=== PATIENT | male | born 1985 | race American Indian/Alaskan Native ===

== ENCOUNTER 2018-04-15 11:09 | Emergency (ER) | payer BC ==
[2018-04-15 11:17] VITALS: BP 125/87
[2018-04-15] MEDS ORDERED: TYLENOL PO ONE (13:40)
--- NOTE | 2018-04-15 14:02 | Emergency Department Report ---
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 The patient reports left leg pain for the past one week, associated with swelling. He also reports episodic chest pain and shortness of breath over the wet last week, none today, last episode greater than 24 hours ago. The patient denies fever, neck pain, parasthesias, cough, hemoptysis, palpitations, dizziness, syncope. Patient also denies cocaine or other stimulant use, history of DVT or PE, recent immobilization, or history of cancer. - Exam Vital Signs: Vital Signs 04/15/18 11:12 Temperature 98.8 F Pulse Rate 90 Respiratory 16 Rate Blood Pressure 125/87 O2 Sat by Pulse 98 Oximetry MSE screening note: Focused history and physical exam performed. Due to findings the following was ordered: ED Disposition for MSE Condition: Stable Referrals: PRIMARY CARE, [Primary Care Provider] - 3-5 Days
== END 2018-04-15 17:09 | disposition left against medical advice (07) ==
LOC: ED 11:09
DX: R06.02 Shortness of breath (principal); Z53.21 Procedure and treatment not carried out due to patient leaving prior to being seen by health care provider
CPT/HCPCS: 71046; 93005; 93010

== ENCOUNTER 2018-12-01 15:34 | Emergency (ER) | payer SELFPAY ==
[2018-12-01 15:39] VITALS: BP 143/93
[2018-12-01] MEDS ORDERED: ZITHROMAX PO ONE (16:23)
[2018-12-01] MEDS ORDERED: ZOFRAN ODT PO ONE (16:23)
[2018-12-01] MEDS ORDERED: XYLOCAINE 1% MPF 5 mL INFILTRATI ONE (16:23)
[2018-12-01] MEDS ORDERED: ROCEPHIN IM ONE (16:23)
--- NOTE | 2018-12-01 16:28 | Emergency Department Report ---
ED General Adult HPI - General Chief complaint: Upper Respiratory Infection Stated complaint: COUGHING Time Seen by Provider: 12/01/18 16:10 Source: patient Mode of arrival: Ambulatory Limitations: No Limitations - History of Present Illness Initial comments: Ms. Brice is a very pleasant 32-year-old male with history of HIV who presents with cough for the past 3 weeks. Cold symptoms have improved. However his primary care physician in [facility] is concerned about a bacterial infection. He has a undetectable viral load. He also was informed that he has chlamydia infection. He currently requests treatment for infection. -: Gradual, week(s) (3) Location: chest Improves with: none Worsens with: none - Related Data Previous Rx's Medication Instructions Recorded Last Taken Type cephALEXin [Keflex] 500 mg PO Q6HR 5 Days #20 capsule 12/01/18 Unknown Rx Allergies Allergy/AdvReac Type Severity Reaction Status Date / Time No Known Allergies Allergy Unverified 04/15/18 11:11 ED Review of Systems ROS: Stated complaint: COUGHING Other details as noted in HPI Comment: All other systems reviewed and negative Constitutional: denies: fever, malaise Respiratory: cough ED Past Medical Hx - Past Medical History Previous Medical History?: Yes Hx HIV: Yes - Surgical History Past Surgical History?: Yes Additional Surgical History: fistula repair - Social History Smoking Status: Never Smoker Substance Use Type: Marijuana - Medications Home Medications: Home Medications Medication Instructions Recorded Confirmed Last Taken Type cephALEXin [Keflex] 500 mg PO Q6HR 5 Days #20 capsule 12/01/18 Unknown Rx ED Physical Exam - General Limitations: No Limitations General appearance: alert, in no apparent distress - Head Head exam: Present: atraumatic, normocephalic - Eye Eye exam: Present: normal appearance - ENT ENT exam: Present: mucous membranes moist - Neck Neck exam: Present: normal inspection. Absent: tenderness, meningismus - Respiratory Respiratory exam: Present: normal lung sounds bilaterally. Absent: respiratory distress, wheezes, rales, rhonchi - Cardiovascular Cardiovascular Exam: Present: regular rate, normal rhythm, normal heart sounds. Absent: systolic murmur, diastolic murmur, rubs, gallop - GI/Abdominal GI/Abdominal exam: Present: soft, normal bowel sounds. Absent: distended, tenderness, guarding, rebound - Rectal Rectal exam: Present: deferred - Extremities Exam Extremities exam: Present: normal inspection - Back Exam Back exam: Present: normal inspection - Neurological Exam Neurological exam: Present: alert, oriented X3 - Psychiatric Psychiatric exam: Present: normal affect, normal mood - Skin Skin exam: Present: warm, dry, intact, normal color. Absent: rash ED Course Vital Signs 12/01/18 15:38 Temperature 97.9 F Pulse Rate 108 H Respiratory 14 Rate Blood Pressure 143/93 O2 Sat by Pulse 98 Oximetry ED Medical Decision Making - Medical Decision Making Due to duration of symptoms, antibiotics are indicated for acute bronchitis. I have prescribed Keflex. Patient also was given ceftriaxone, azithromycin in the ED for Chlamydia infection. Critical care attestation.: If time is entered above; I have spent that time in minutes in the direct care of this critically ill patient, excluding procedure time. ED Disposition Clinical Impression: Acute bronchitis, Chlamydia infection Disposition: - TO HOME OR SELFCARE Is pt being admited?: No Does the pt Need Aspirin: No Condition: Stable Instructions: Acute Bronchitis (ED), Chlamydia Infection (ED) Prescriptions: cephALEXin [Keflex] 500 mg PO Q6HR 5 Days #20 capsule Referrals: [facility] [Outside] - 3-5 Days
[2018-12-01] MEDS ORDERED: SOLU-Medrol ONE (17:05)
[2018-12-01] MEDS ORDERED: PEPCID IV ONE (17:05)
[2018-12-01] MEDS ORDERED: BENADRYL ONE (17:05)
[2018-12-01] MEDS ORDERED: NACL 0.9% 1000 ML 1,000 ML ONE (17:14)
[2018-12-01] MEDS ORDERED: NACL 0.9% 1000 ML 0 ML ONE (17:14)
== END 2018-12-01 17:25 | disposition home or self-care (01) ==
LOC: ED 15:34
DX: J20.9 Acute bronchitis, unspecified (principal); A74.9 Chlamydial infection, unspecified; Z21 Asymptomatic human immunodeficiency virus [HIV] infection status
CPT/HCPCS: 96372; 99282; J0696; J7030; J1200; J2930; Q0162